=== PATIENT | male | born 1985 | race Two or more races ===

== ENCOUNTER 2021-01-06 00:42 | Emergency (ER) | payer OTHER ==
[~2021-01-06] VITALS: Ht 167.6 cm; Wt 68.2 kg
[2021-01-06] MEDS ORDERED: LIDOCAINE 1% 10 ML VIAL SQ ONE (01:45)
[2021-01-06] MEDS ORDERED: PERTUSS(ACELL),DIPH,TET VAC/PF 0.5 ML SYRINGE IM. ONE (01:45)
[2021-01-06] MEDS ORDERED: BACITRACIN 0.9 GM PACKET OINTMENT TP ONE (01:45)
[2021-01-06 02:30] VITALS: BP 131/85
== END 2021-01-06 02:49 | disposition home or self-care (01) ==
LOC: EMS 00:42
DX: S81.011A Laceration without foreign body, right knee, initial encounter (principal); S81.012A Laceration without foreign body, left knee, initial encounter; W45.8XXA Other foreign body or object entering through skin, initial encounter; Y93.89 Activity, other specified; Y92.89 Other specified places as the place of occurrence of the external cause; Y99.8 Other external cause status
CPT/HCPCS: 12004; 73562; 90471; 90715; 99283; J3490